=== PATIENT | male | born 2000 | race Caucasian/White ===

== ENCOUNTER 2018-06-21 20:16 | Emergency (ER) | payer SELFPAY ==
[2018-06-21 20:29] VITALS: BP 112/68
--- NOTE | 2018-06-22 02:04 | Emergency Department Report ---
- General Chief Complaint: Skin Rash Stated Complaint: RASH Time Seen by Provider: 06/21/18 23:47 Source: patient Mode of arrival: Ambulatory Limitations: No Limitations - History of Present Illness MD Complaint: rhinorrhea, nasal congestion -: days(s) (2) Severity: mild Consistency: constant Associated Symptoms: rhinorrhea, nasal congestion Treatments Prior to Arrival: none - Related Data Previous Rx's Medication Instructions Recorded Last Taken Type Brompheniramine/Pseudoephed/Dm 10 ml PO Q6H PRN #120 syrup 06/22/18 Unknown Rx [Bromfed Dm Cough Syrup] Allergies Allergy/AdvReac Type Severity Reaction Status Date / Time No Known Allergies Allergy Unverified 06/21/18 20:47 ED Review of Systems ROS: Stated complaint: RASH Other details as noted in HPI Constitutional: denies: chills, malaise Eyes: denies: eye pain Cardiovascular: denies: chest pain, palpitations, dyspnea on exertion Endocrine: denies: excessive sweating, flushing, intolerance to cold Gastrointestinal: denies: abdominal pain, nausea, vomiting Genitourinary: other (denies any current penile or genital issue reports having a foreskin complication about one week ago. However, it resolved after taking a shower.). denies: urgency Skin: denies: rash, lesions Neurological: denies: headache, weakness Psychiatric: denies: anxiety, depression Hematological/Lymphatic: denies: easy bleeding ED Past Medical Hx - Past Medical History Previous Medical History?: No - Surgical History Past Surgical History?: No - Social History Smoking Status: Never Smoker Substance Use Type: None - Medications Home Medications: Home Medications Medication Instructions Recorded Confirmed Last Taken Type Brompheniramine/Pseudoephed/Dm 10 ml PO Q6H PRN #120 syrup 06/22/18 Unknown Rx [Bromfed Dm Cough Syrup] ED Physical Exam - General Limitations: No Limitations General appearance: alert, in no apparent distress - Head Head exam: Present: atraumatic, normocephalic - Eye Eye exam: Present: normal appearance. Absent: PERRL, EOMI Pupils: Absent: normal accommodation - ENT ENT exam: Present: normal exam (bilateral nasal congestion. Clear drainage and posterior drainage is well. Ears are clear. No lymphadenopathy), mucous membranes moist. Absent: normal orophraynx, normal external ear exam - Neck Neck exam: Present: normal inspection. Absent: meningismus, lymphadenopathy, thyromegaly - Respiratory Respiratory exam: Present: normal lung sounds bilaterally. Absent: respiratory distress, wheezes, rales - Cardiovascular Cardiovascular Exam: Present: regular rate, normal rhythm. Absent: systolic murmur, diastolic murmur, rubs, gallop - GI/Abdominal GI/Abdominal exam: Present: soft, normal bowel sounds - Rectal Rectal exam: Present: deferred. Absent: normal rectal tone, decreased rectal tone, fecal impaction, hemorrhoids - External exam: Absent: erythema, lacerations, ecchymosis - Extremities Exam Extremities exam: Present: normal inspection - Back Exam Back exam: Present: normal inspection. Absent: tenderness, CVA tenderness (R), paraspinal tenderness - Neurological Exam Neurological exam: Present: alert, oriented X3, CN II-XII intact - Psychiatric Psychiatric exam: Present: normal affect, normal mood - Skin Skin exam: Present: warm, dry, intact, normal color. Absent: rash ED Course Vital Signs 06/21/18 06/21/18 20:28 20:43 Temperature 98.0 F 98 F Pulse Rate 88 75 Respiratory 18 18 Rate Blood Pressure 112/68 112/68 O2 Sat by Pulse 98 97 Oximetry Critical care attestation.: If time is entered above; I have spent that time in minutes in the direct care of this critically ill patient, excluding procedure time. ED Disposition Clinical Impression: URI, acute Disposition: DC-01 TO HOME OR SELFCARE Is pt being admited?: No Does the pt Need Aspirin: No Condition: Stable Instructions: Upper Respiratory Infection (ED) Prescriptions: Brompheniramine/Pseudoephed/Dm [Bromfed Dm Cough Syrup] 10 ml PO Q6H PRN #120 syrup PRN Reason: cough and congestion Referrals: PRIMARY CARE,MD [Primary Care Provider] - 3-5 Days
== END 2018-06-22 01:40 | disposition home or self-care (01) ==
LOC: ED 20:16
DX: J06.9 Acute upper respiratory infection, unspecified (principal)
CPT/HCPCS: 99282